=== PATIENT | male | born 1965 | race Caucasian/White ===

== ENCOUNTER 2019-08-02 14:04 | Emergency (ER) | payer OTHER ==
[2019-08-02 14:36] VITALS: BMI 39.3
[2019-08-02] MEDS ORDERED: METOCLOPRAMIDE HCL INJECTION 10 MG/2 ML VIAL IVPUSH ONE (15:27)
[2019-08-02] MEDS ORDERED: ACETAMINOPHEN 1000 MG/100 ML VIAL (NON FORMULARY) IVPB ONE (15:27)
[2019-08-02] MEDS ORDERED: SODIUM CHLORIDE 0.9% 500 ML INFUS.BAG IV ONE (15:41)
--- NOTE | 2019-08-02 15:50 | PDOC ---
History of Present Illness - General Chief Complaint: Headache Stated Complaint: HEADACHE History Source: Patient Exam Limitations: No Limitations - History of Present Illness Initial Comments: 54 y/o M, no pmh presents to the ED c/o posterior occipital headaches, rated 4/ 10, of 3 month duration that has worsened in the last 2 days accompanied by dizziness, nausea and vomiting. Pt reports that he has had these symptoms for 3 months now with an episode of nausea, vomiting and dizziness 3 weeks ago that improved with OTC meds. In the last 2 days, he has experiencing worsening headaches with dizziness. Denies f/c/vomiting, diarrhea, photophobia, numbness and tingling. 08/02/19 15:49 08/02/19 15:58 Associated Symptoms: reports: denies symptoms, headaches. denies: chest pain, cough, nausea/vomiting, shortness of breath Past History - Travel Traveled outside of the country in the last 30 days: No Close contact w/someone who was outside of country & ill: No - Past Medical History Allergies/Adverse Reactions: Allergies Allergy/AdvReac Type Severity Reaction Status Date / Time Penicillins Allergy Verified 08/02/19 14:30 Home Medications: Ambulatory Orders Fluticasone Prop 0.05% Nasal [Flonase -] 1 - 2 spray NS DAILY #1 spray.pump 03/14 Naproxen Sodium [Aleve] 3 tab PO DAILY PRN 08/02/19 Sod Chlor,Bicarb/Squeez Bottle [Neilmed Sinus Rinse Comp Kit] 1 each NS DAILY # 5 packet 08/02/19 COPD: No CHF: No DVT: No Dementia: No GI Disorders: Yes (GASTRIC ULCER) - Immunization History Immunization Up to Date: Yes - Psycho Social/Smoking Cessation Hx Smoking History: Never smoked Information on smoking cessation initiated: No Hx Alcohol Use: No Drug/Substance Use Hx: No Review of Systems - Review of Systems Able to Perform ROS?: Yes Is the patient limited Arabic proficient: No Constitutional: Yes: Symptoms Reported, Weight Stable. No: Chills, Diaphoresis , Fever, Loss of Appetite HEENTM: Yes: Symptoms Reported. No: Eye Pain, Tearing Respiratory: Yes: Symptoms reported. No: Cough, Shortness of Breath, Wheezing Cardiac (ROS): Yes: Symptoms Reported. No: Chest Pain, Chest Tightness ABD/GI: Yes: Symptoms Reported, Nausea. No: Abdominal Distended, Diarrhea, Vomiting Neurological: Yes: Symptoms reported, Headache. No: Numbness, Paresthesia, Weakness All Other Systems: Reviewed and Negative *Physical Exam - Vital Signs Last Vital Signs Temp Pulse Resp BP Pulse Ox 97.6 F 79 17 147/105 H 97 08/02/19 14:31 08/02/19 14:31 08/02/19 14:31 08/02/19 14:31 08/02/19 14:31 - Physical Exam General Appearance: Yes: Nourished, Appropriately Dressed HEENT: positive: EOMI, IVONE, Normal ENT Inspection, Pharynx Normal Neck: positive: Trachea midline, Normal Thyroid, Supple Respiratory/Chest: positive: Lungs Clear, Normal Breath Sounds. negative: Crackles, Wheezing Cardiovascular: positive: Regular Rhythm, Regular Rate, S1, S2. negative: Murmur, Gallop/S3, Gallop/S4 Vascular Pulses: Dorsalis-Pedis (R): 2+, Doralis-Pedis (L): 2+ Gastrointestinal/Abdominal: positive: Normal Bowel Sounds, Soft. negative: Guarding, Rebound, Tenderness Neurologic: positive: Fully Oriented, Alert, Normal Mood/Affect. 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 #Headaches CT head w/out contrast cbc, cmp IVF IV tylenol IV reglan Meclizine neti pot/ Declan Med Toradol if CT head is normal 08/02/19 16:02 08/02/19 16:12 08/02/19 17:34 08/02/19 17:36 Discharge - Discharge Information Problems reviewed: Yes Clinical Impression/Diagnosis: Generalized headaches Condition: Improved Disposition: HOME - Admission No - Additional Discharge Information Prescriptions: Fluticasone Prop 0.05% Nasal [Flonase -] 1 - 2 spray NS DAILY #1 spray.pump Sod Chlor,Bicarb/Squeez Bottle [Neilmed Sinus Rinse Comp Kit] 1 each NS DAILY # 5 packet - Follow up/Referral Referrals: Vivien Villanueva [Primary Care Provider] - Hany Alba MD [Staff Physician] - - Patient Discharge Instructions Additional Instructions: You were seen in the emergency room for headaches While in the emergency room, we evaluated you with lab work, blood work and CAT scan of your head. We found that your symptoms were likely due to sinus congestion. We treated you with medications and your symptoms improved. To relieve your symptoms you can take the following medication and treatment Flonase spray as needed NeilMed kit for nasal rinsing. We have also provided you with information on our ENT specialist if you experience further worsening of your symptoms. Please take all your medications as prescribed Please follow up with the ENT specialist we have provided Please follow up with your primary care physician within 1 week Return to the emergency room, if you experience worsening of your symptoms, headaches, nausea, vomiting, dizziness or any worsening of your condition. - Post Discharge Activity
[2019-08-02] MEDS ORDERED: METOCLOPRAMIDE HCL INJECTION 10 MG/2 ML VIAL ONE (15:53)
[2019-08-02] MEDS ORDERED: ACETAMINOPHEN INJECTION 100 ML IVPB ONE (15:54)
[2019-08-02 16:07] LABS: BASO % 1.2 % (0-2.0); HEMATOCRIT 49.7 % (35.4-49); HEMOGLOBIN 16.6 GM/dL (11.7-16.9); LYMPH % 33.6 % (8-40); MCH 29.5 pg (25.7-33.7); MCHC 33.4 g/dl (32.0-35.9); MEAN CELL VOLUME 88.6 fl (80-96); MEAN PLT VOLUME 7.7 fl (7.5-11.1); MONO % 8.5 % (3.8-10.2); NEUT % 48.7 % (42.8-82.8); PLATELET COUNT 304 K/MM3 (134-434); RBC 5.61 M/mm3 (4.00-5.60); RDW 13.8 % (11.9-15.9); WHITE BLOOD COUNT 11.6 K/mm3 (4.0-10.0)
[2019-08-02 16:43] LABS: ALBUMIN 4.1 g/dl (3.4-5.0); BILIRUBIN,TOTAL 0.1 mg/dL (0.2-1); BLOOD UREA NITROGEN 18.4 mg/dL (7-18); CALCIUM 9.1 mg/dL (8.5-10.1); POTASSIUM 4.4 mmol/L (3.5-5.1); TOT PROT 7.3 g/dl (6.4-8.2)
--- NOTE | 2019-08-02 17:32 | PDOC ---
Attending Attestation - Resident Resident Name: Harinder Brown - ED Attending Attestation I have performed the following: I have examined & evaluated the patient, The case was reviewed & discussed with the resident, I agree w/resident's findings & plan, Exceptions are as noted - HPI HPI: 08/02/19 17:30 54 yo mal here wiht intermittent vertigo sxs, started 3 weeks ago. was severe at that time with n/v today also started having headache. cuongenlty has only mild vertigo. no weakness. no n/v no fall. does have nasal congestion recenlty and h/o seasonl allegies. no weakness. no chage to speech. no f. no blurry vision. did not take anyting prior to arrrival. - Physicial Exam PE: 08/02/19 17:31 awake alert lungs clear bilat heart rrr no mrg abd soft nt nd ext wwp. finger to nose, heel to amaya, alt hnd movment normal. speech clear. strength 5/5 all four ext. gait normal. neg romberg. neg rashad hallpike. - Medical Decision Making 08/02/19 17:31 54 yo male headache and vertigo. mild. normal cerebellar exam. plan ct head labs meds.
[2019-08-02] MEDS ORDERED: MECLIZINE HCL 12.5 MG TABLET PO ONE (17:33)
[2019-08-02] MEDS ORDERED: MECLIZINE HCL 12.5 MG TABLET ONE (17:49)
[2019-08-02 18:23] VITALS: BP 136/92; PULSE 60; TEMP 97.9
== END 2019-08-02 18:30 | disposition home or self-care (01) ==
LOC: JER 14:04
PROC: 3E033NZ Introduction of Analgesics, Hypnotics, Sedatives into Peripheral Vein, Percutaneous Approach (ICD-10-PCS; principal; 2019-08-02)
PROC: 3E033GC Introduction of Other Therapeutic Substance into Peripheral Vein, Percutaneous Approach (ICD-10-PCS; 2019-08-02)
DX: R51 Headache (principal); Z88.0 Allergy status to penicillin
CPT/HCPCS: 36415; 70450-TC; 80053; 85025; 99282-25; J0131